=== PATIENT | female | born 1995 | race Caucasian/White ===

== ENCOUNTER 2017-04-21 16:15 | Emergency (ER) | payer BC ==
[2017-04-21 18:31] VITALS: BP 124/77
--- NOTE | 2017-04-21 18:49 | UC ---
Throat Pain/Nasal Ryley HPI - HPI Summary HPI Summary: 21 yr old with sore throat, feels like strep and has had strep in the past with fever and nausea with 1 episode of vomiting. - History of Current Complaint Chief Complaint: UCRespiratory Stated Complaint: FEVER/SORE THROAT/VOMITING Time Seen by Provider: 04/21/17 18:35 Hx Obtained From: Patient Hx Last Menstrual Period: 04/18/17 Onset/Duration: Gradual Onset - Epiglottits Risk Factors Epiglottis Risk Factors: Negative - Allergies/Home Medications Allergies/Adverse Reactions: Allergies Allergy/AdvReac Type Severity Reaction Status Date / Time No Known Allergies Allergy Verified 04/21/17 18:31 Home Medications: Home Medications Levonorgestrel-Ethinyl Estradi [Jolessa 0.15-0.03 mg] 1 tab PO DAILY 04/21/17 [ History Confirmed 04/21/17] PMH/Surg Hx/FS Hx/Imm Hx Previously Healthy: Yes - Surgical History Surgical History: Yes Surgery Procedure, Year, and Place: wisdom teeth - Family History Known Family History: Positive: None - Social History Occupation: Student Lives: Dormitory/Roommates Alcohol Use: Rare Substance Use Type: None Smoking Status (MU): Never Smoked Tobacco - Immunization History Most Recent Influenza Vaccination: no Review of Systems Constitutional: Fever ENT: Sore Throat All Other Systems Reviewed And Are Negative: Yes Physical Exam Triage Information Reviewed: Yes Appearance: Well-Appearing, No Pain Distress, Well-Nourished Vital Signs: Initial Vital Signs Temp 98.9 F 04/21/17 18:26 Pulse 102 04/21/17 18:26 Resp 16 04/21/17 18:26 BP 124/77 04/21/17 18:26 Pulse Ox 98 04/21/17 18:26 Vital Signs Reviewed: Yes Eye Exam: Normal ENT Exam: Normal ENT: Positive: Pharyngeal erythema, Nasal congestion Dental Exam: Normal Neck exam: Normal Neck: Positive: 1 Respiratory Exam: Normal Cardiovascular Exam: Normal Musculoskeletal Exam: Normal Neurological Exam: Normal Psychological Exam: Normal Skin Exam: Normal Throat Pain/Nasal Course/Dx - Differential Dx/Diagnosis Differential Diagnosis/HQI/PQRI: Pharyngitis, Tonsillitis, URI Provider Diagnoses: strep throat Discharge - Discharge Plan Condition: Good Disposition: HOME Prescriptions: Amoxicillin PO (*) [Amoxicillin 875 MG (*)] 875 mg PO BID #20 tab Amoxicillin PO (*) [Amoxicillin 400 MG/5 ML SUSP*] 875 mg PO BID #1 bottle Magic Mouth Was-JULIO/MAAL/LIDO* 5 ml SWISH SPIT QID #80 ml Ondansetron ODT TAB* [Zofran 4 MG Odt TAB*] 4 mg PO Q8H PRN #10 tab.odt PRN Reason: Nausea Patient Education Materials: Strep Throat (ED) Additional Instructions: Change toothbrush and if Symptom not improved return to office.
== END 2017-04-21 19:06 | disposition home or self-care (01) ==
LOC: UCCORT 16:15
DX: J02.0 Streptococcal pharyngitis (principal)
CPT/HCPCS: 87651; 99202; G0463